=== PATIENT | female | born 1980 ===

== ENCOUNTER 2018-05-01 12:03 | Inpatient (IN) ==
[2018-05-01] MEDS ORDERED: oxyCODONE/ACETAMINOPHEN 5/325 TABLET PO PRN (12:16)
[2018-05-01] MEDS ORDERED: FUROSEMIDE 20 MG/2 ML VIAL IVP SCH (13:00)
[2018-05-01] MEDS ORDERED: PATIENT OWN MED 1 EACH EACH OP SCH (13:00)
[2018-05-01] MEDS ORDERED: 0.9 % SODIUM CHLORIDE 1,000 ML IV SCH (13:00)
== END 2018-05-02 07:05 | disposition home or self-care (01) | DRG 951 ==
LOC: SOUTH 12:03
PROVIDERS: ADMIT Family Medicine; ATTEND Family Medicine
DX: Z53.9 Procedure and treatment not carried out, unspecified reason (principal)